=== PATIENT | female | born 1975 | race Caucasian/White ===

== ENCOUNTER 2016-04-23 17:13 | Emergency (ER) | payer BC, OTHER ==
[~2016-04-23] VITALS: Ht 162.6 cm; Wt 137.2 kg
[~2016-04-23 17:13] MED LIST: CITA20 PO; CYCL-36 PO; IBUP800T23 PO; NAPR220T95 PO; TRAM50 PO
[2016-04-23 17:17] VITALS: BP 132/86; PULSE 82; RESP 16; TEMP 98.2; O2SAT 96
[2016-04-23] MEDS ORDERED: CITA20TA4 PO (17:39)
[2016-04-23] MEDS ORDERED: FURO20TA PO (17:39)
[2016-04-23] MEDS ORDERED: VITA1000 PO (17:39)
[2016-04-23] MEDS ORDERED: VITA100021 SL (17:39)
[2016-04-23] MEDS ORDERED: OXYC15TA PO (17:39)
[2016-04-23] MEDS ORDERED: SODIUM CHLORIDE 0.9% FLUSH 5 ML FLUSH IVF PRN (18:00)
[2016-04-23 18:12] LABS: GLUCOSE,URINE NEG (NEG); KETONE, URINE NEG (NEG); NITRITE,URINE NEG (NEG)
[2016-04-23 18:14] LABS: AUTOMATED NEUTROPHIL # 4.4 TH/MM3 (1.8-7.7); BASOPHIL # 0.1 TH/MM3 (0-0.2); BASOPHIL % 2.2 % (0.0-2.0); EOSINOPHIL # 0.1 TH/MM3 (0-0.4); EOSINOPHIL % 1.8 % (0.0-4.0); HEMATOCRIT 34.1 % (35.0-46.0); LYMPH % 21.1 % (9.0-44.0); LYMPHOCYTE # 1.3 TH/MM3 (1.0-4.8); MEAN CELL VOLUME 81.3 FL (80.0-100.0); MEAN CORPUSCULAR HEMOGLOBIN 26.3 PG (27.0-34.0); MEAN CORPUSCULAR HGB CONC 32.3 % (32.0-36.0); MONO % 6.4 % (0.0-8.0); NEUT % 68.5 % (16.0-70.0); PLATELET COUNT 56 TH/MM3 (150-450); RED CELL DISTRIBUTION WIDTH 15.2 % (11.6-17.2); WHITE BLOOD COUNT 6.3 TH/MM3 (4.0-11.0)
[2016-04-23 18:21] LABS: CHLORIDE 97 MEQ/L (98-107); POTASSIUM 3.9 MEQ/L (3.5-5.1); SODIUM (NA) 137 MEQ/L (136-145)
[2016-04-23 18:22] LABS: BLOOD, URINE MOD (NEG)
[2016-04-23 18:23] LABS: URINE COLOR YELLOW (YELLW/STRAW)
[2016-04-23 18:24] LABS: COMMENT (UR) CULT NOT INDICATED; CULTURE IF INDICATED CULT NOT INDICATED; SQUAMOUS EPITHELIAL CELL URINE 0-5 /hpf (0-5); WBC, URINE 0-2 /hpf (0-5)
[2016-04-23 18:25] LABS: ANION GAP 7 MEQ/L (5-15); BICARBONATE 33.2 MEQ/L (21.0-32.0); BLOOD UREA NITROGEN 12 MG/DL (7-18)
[2016-04-23 18:26] LABS: APTT (PATIENT) 27.8 SEC (24.3-30.1); PROTHROMBIN TIME - PATIENT 10.7 SEC (9.8-11.6)
[2016-04-23 18:28] LABS: ALT (GPT) 105 U/L (10-53); AST (GOT) 108 U/L (15-37); GLOMERULAR FILTRATION RATE 61 ML/MIN (>89); HEMO FLAGS AUTO DIFF
[2016-04-23 18:29] LABS: TOTAL BILIRUBIN ADULT 0.5 MG/DL (0.2-1.0)
--- NOTE | 2016-04-23 18:29 | PD ---
HPI Chief Complaint: Edema Time Seen by Provider: 17:27 Travel History International Travel<30 days: No Contact w/Intl Traveler<30days: No Traveled to known affect area: No History of Present Illness HPI Patient is a 40-year-old female who presents to emergency room with complaints of swelling to her lower extremities with increased bruising for the past 2-3 weeks. Patient reports that she's had swelling to her lower extremities in the past, reports that she was started on Lasix and was instructed to take the medication every time her legs felt swollen. Reports that another physician to order stop doing that as she has lymphedema. Patient reports that at that time , she was admitted to the hospital for stage III kidney disease as well as for transaminitis. Patient reports that after she was hospitalized in discharge, she did follow up with a primary care doctor and had complete resolution of her symptoms. Patient reports that over the past 2-3 weeks, she has had increased swelling to her lower extremities with bruising all over body. Patient denies any recent travels or trips. Patient denies taking any anticoagulants. Patient denies history of PE or DVT. Patient denies shortness of breath or chest pain at this time. Patient does admit to taking a few doses of Lasix over the past few days without symptomatic relief of leg swelling. PFSH Past Medical History Anemia: Yes Anxiety: Yes Depression: Yes Cardiovascular Problems: Yes (PERIPHERAL EDEMA) Diminished Hearing: No Medical other: Yes (VITAMIN B12 & D DEFICIENCIES) Influenza Vaccination: No ?: Not Past Surgical History Cholecystectomy: Yes Tonsillectomy: Yes (& ADENOIDS) Social History Alcohol Use: No Tobacco Use: No Substance Use: No Allergies-Medications (Allergen,Severity, Reaction): Coded Allergies: No Known Allergies (Unverified , 04/23/16) Reported Meds & Prescriptions Reported Meds & Active Scripts Active Reported Vitamin D-1000 (Cholecalciferol) 1,000 Unit Tab 1,000 Units PO DAILY Vitamin B-12 (Cyanocobalamin) 1,000 Mcg Subl 1,000 Mcg SL DAILY Furosemide 20 Mg Tab 20 Mg PO DAILY Oxycodone (Oxycodone HCl) 15 Mg Tab 15 Mg PO Q6H PRN Citalopram (Citalopram Hydrobromide) 20 Mg Tab 20 Mg PO DAILY Review of Systems General / Constitutional: No: Fever Eyes: No: Visual changes HENT: No: Headaches Cardiovascular: No: Chest Pain or Discomfort Respiratory: No: Shortness of Breath Gastrointestinal: No: Abdominal Pain Genitourinary: No: Dysuria Musculoskeletal: Positive: Edema, No: Pain Skin: No Rash Neurologic: No: Weakness Psychiatric: No: Depression Endocrine: No: Polydipsia Hematologic/Lymphatic: No: Easy Bruising Physical Exam Narrative GENERAL: No acute distress, nontoxic SKIN: Warm and dry. HEAD: Atraumatic. Normocephalic. EYES:. No injection or drainage. ENT: No nasal bleeding or discharge. Mucous membranes pink and moist. NECK: Trachea midline. No JVD. CARDIOVASCULAR: Regular rate and rhythm. No murmur appreciated. RESPIRATORY: No accessory muscle use. Clear to auscultation. Breath sounds equal bilaterally. GASTROINTESTINAL: Abdomen soft, non-tender, nondistended. Hepatic and splenic margins not palpable. MUSCULOSKELETAL: No obvious deformities. No clubbing. No cyanosis. +2 pitting edema bilaterally NEUROLOGICAL: Awake and alert. No obvious cranial nerve deficits. Motor grossly within normal limits. Normal speech. PSYCHIATRIC: Appropriate mood and affect; insight and judgment normal. Data Data Last Documented VS Vital Signs Date Time Temp Pulse Resp B/P Pulse Ox O2 Delivery O2 Flow Rate FiO2 04/23/16 19:12 80 16 119/65 99 Room Air 04/23/16 17:17 98.2 Orders Complete Blood Count With Diff (04/23/16 17:51) Comprehensive Metabolic Panel (04/23/16 17:51) Lipase (04/23/16 17:51) Prothrombin Time / Inr (Pt) (04/23/16 17:51) Act Partial Throm Time (Ptt) (04/23/16 17:51) Urinalysis - C+S If Indicated (04/23/16 17:51) Iv Access Insert/Monitor (04/23/16 17:51) Sodium Chloride 0.9% Flush (Ns Flush) (04/23/16 18:00) Us Leg Venous Doppler Bilat (04/23/16 ) Labs Laboratory Tests Test 04/23/16 04/23/16 17:45 18:00 Urine Color YELLOW Urine Turbidity CLEAR Urine pH 6.0 Urine Specific [place] 1.021 Urine Protein TRACE mg/dL Urine Glucose (UA) NEG mg/dL Urine Ketones NEG mg/dL Urine Occult Blood MOD Urine Nitrite NEG Urine Bilirubin NEG Urine Leukocyte Esterase NEG Urine RBC 10-14 /hpf Urine WBC 0-2 /hpf Urine Squamous Epithelial 0-5 /hpf Cells Urine Bacteria NONE /hpf Microscopic Urinalysis Comment CULT NOT INDICATED White Blood Count 6.3 TH/MM3 Red Blood Count 4.20 MIL/MM3 Hemoglobin 11.0 GM/DL Hematocrit 34.1 % Mean Corpuscular Volume 81.3 FL Mean Corpuscular Hemoglobin 26.3 PG Mean Corpuscular Hemoglobin 32.3 % Concent Red Cell Distribution Width 15.2 % Platelet Count 56 TH/MM3 Mean Platelet Volume 12.2 FL Neutrophils (%) (Auto) 68.5 % Lymphocytes (%) (Auto) 21.1 % Monocytes (%) (Auto) 6.4 % Eosinophils (%) (Auto) 1.8 % Basophils (%) (Auto) 2.2 % Neutrophils # (Auto) 4.4 TH/MM3 Lymphocytes # (Auto) 1.3 TH/MM3 Monocytes # (Auto) 0.4 TH/MM3 Eosinophils # (Auto) 0.1 TH/MM3 Basophils # (Auto) 0.1 TH/MM3 CBC Comment AUTO DIFF Differential Comment AUTO DIFF CONFIRMED Platelet Estimate LOW Platelet Morphology Comment ENLARGED Prothrombin Time 10.7 SEC Prothromb Time International 1.0 RATIO Ratio Activated Partial 27.8 SEC Thromboplast Time Sodium Level 137 MEQ/L Potassium Level 3.9 MEQ/L Chloride Level 97 MEQ/L Carbon Dioxide Level 33.2 MEQ/L Anion Gap 7 MEQ/L Blood Urea Nitrogen 12 MG/DL Creatinine 1.00 MG/DL Estimat Glomerular Filtration 61 ML/MIN Rate Random Glucose 96 MG/DL Calcium Level 8.3 MG/DL Total Bilirubin 0.5 MG/DL Aspartate Amino Transf 108 U/L (AST/SGOT) Alanine Aminotransferase 105 U/L (ALT/SGPT) Alkaline Phosphatase 220 U/L Total Protein 7.2 GM/DL Albumin 3.0 GM/DL Lipase 68 U/L [facility] Medical Decision Making Medical Screen Exam Complete: Yes Emergency Medical Condition: Yes Interpretation(s) Vital Signs Date Time Temp Pulse Resp B/P Pulse Ox O2 Delivery O2 Flow Rate FiO2 04/23/16 17:17 98.2 82 16 132/86 96 Differential Diagnosis Clotting disorder, acute kidney injury, DVT, PE, CHF, electrolyte abnormality Narrative Course Patient is a 40-year-old female presents to emergency room with complaints of swelling to lower extremities bilaterally as increased bruising for her body for the past 2-3 weeks. Patient reports that she is currently not taking any anticoagulants at this time, denies any recent travels or any history of PE or DVT. Overall, patient nontoxic and evaluation. Patient with no chest pain or shortness of breath. Patient does have +2 pitting edema to b/l le's - will check us of legs to evaluate for possible dvt Check CBC, BMP, coags as patient reports increased bruising. Patient reports that she is currently not taking any anticoagulants at this time. Reviewed all labs and all studies with patient in detail. Patient instructed to follow-up with her primary care doctor as soon as possible. Patient understands need for repeat ultrasound of legs in 1 week if swelling persists. Diagnosis Primary Impression: Leg edema Qualified Code: R60.0 - Bilateral edema of lower extremity Additional Impressions: Thrombocytopenia Anemia Qualified Code: D64.9 - Anemia, unspecified type Transaminitis Hematuria Patient Instructions: General Instructions Additional Instructions: Please provide a copy of patient's labs and studies at discharge Please follow-up with your primary care doctor as soon as possible Please have your ultrasound repeated in 1 week if swelling persists. Please return to the emergency room if symptoms progress or worsen Please bring your discharge paperwork as well as all your studies to doctor's office for follow-up on all findings Return to ER immediately if you notice increased bleeding/bruising Disposition: 01 DISCHARGE HOME Condition: Josseline Rudolph DO Apr 23, 2016 18:29
[2016-04-23 18:31] LABS: ALKALINE PHOSPHATASE 220 U/L (45-117)
[2016-04-23 18:44] LABS: PLATELET ESTIMATE SMEAR LOW (NORMAL); PLATELET MORPHOLOGY ENLARGED (NORMAL); SCAN/DIFF AUTO DIFF CONFIRMED
--- NOTE | 2016-04-23 18:57 | RADHPO ---
EXAM DATE/TIME: 04/23/2016 18:19 [facility] COMPARISON: No previous studies available for comparison. INDICATIONS : Bilateral leg swelling. MEDICAL HISTORY : Anemia. SURGICAL HISTORY : Cholecystectomy.Tonsillectomy. ENCOUNTER: Initial ACUITY: 3 weeks PAIN SCORE: 4/10 LOCATION: Bilateral legs. TECHNIQUE: Venous ultrasound of the left and right leg was performed from the inguinal ligament to the proximal calf. Real-time, color Doppler and spectral tracing, compression and augmentation techniques were us ed. FINDINGS: RIGHT LEG: There is normal compressibility of the deep venous system from the inguinal region to the proximal ca lf. No echogenic clot is seen in the lumen of the common femoral, femoral, popliteal, and posterior tibial veins. There is a normal response of the venous system to proximal and distal augmentation an d respiration. LEFT LEG: There is normal compressibility of the deep venous system from the inguinal region to the proximal ca lf. No echogenic clot is seen in the lumen of the common femoral, femoral, popliteal, and posterior tibial veins. There is a normal response of the venous system to proximal and distal augmentation an d respiration. CONCLUSION: Normal examination. Jessica Guzmán MD on April 23, 2016 at 18:55 Board Certified Radiologist. This report was verified electronically.
[2016-04-23 19:12] VITALS: BP 119/65; PULSE 80; RESP 16; O2SAT 99
== END 2016-04-23 20:21 | disposition home or self-care (01) ==
LOC: PHED 17:13
DX: R60.0 Localized edema (principal); D64.9 Anemia, unspecified; D69.6 Thrombocytopenia, unspecified; R74.0 Nonspecific elevation of levels of transaminase and lactic acid dehydrogenase [LDH]; R31.9 Hematuria, unspecified; E53.8 Deficiency of other specified B group vitamins
CPT/HCPCS: 80053; 81001; 83690; 85025; 85610; 85730; 93970

== ENCOUNTER 2016-06-09 20:59 | Emergency (ER) | payer OTHER ==
[~2016-06-09] VITALS: Ht 162.6 cm; Wt 134.9 kg
[~2016-06-09 20:59] MED LIST changes: -CITA20 PO; +CITA20TA4 PO; -CYCL-36 PO; +FURO20TA PO; -IBUP800T23 PO; -NAPR220T95 PO; +OXYC15TA PO; -TRAM50 PO; +VITA1000 PO; +VITA100021 SL
[2016-06-09 21:46] VITALS: BP 131/86; PULSE 99; RESP 18; TEMP 98.6; O2SAT 100
== END 2016-06-10 00:20 | disposition left against medical advice (07) ==
LOC: PHED 20:59
DX: R10.32 Left lower quadrant pain (principal)
CPT/HCPCS: 99281

== ENCOUNTER 2017-01-20 16:21 | Observation (INO) | payer OTHER ==
[2017-01-20] VITALS (9 sets, daily range): BP systolic 129–157; BP diastolic 72–92; PULSE 86–116; RESP 16–20; TEMP 97.8; O2SAT 99–100
[~2017-01-20] VITALS: Ht 162.6 cm; Wt 129.5 kg
--- NOTE | 2017-01-20 16:41 | PD ---
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 [facility] Past Medical History Anemia: Yes Anxiety: Yes Depression: Yes Cardiovascular Problems: Yes (PERIPHERAL EDEMA) Diminished Hearing: No Past Surgical History Cholecystectomy: Yes Tonsillectomy: Yes (& ADENOIDS) Social History Alcohol Use: No Tobacco Use: No Substance Use: No Allergies-Medications (Allergen,Severity, Reaction): Coded Allergies: No Known Allergies (Unverified Allergy, Unknown, 01/20/17) Reported Meds & Prescriptions Reported Meds & Active Scripts Active Reported Gabapentin 300 Mg Cap 300 Mg PO TID Acyclovir 800 Mg Tab 800 Mg PO 5 TIMES A DAY Oxycodone (Oxycodone HCl) 5 Mg Cap 5 Mg PO Q6H PRN Celexa (Citalopram Hydrobromide) 20 Mg Tab 20 Mg PO DAILY Review of Systems Except as stated in HPI: all other systems reviewed are Neg General / Constitutional: No: Fever Eyes: No: Visual changes HENT: No: Headaches Cardiovascular: Positive: Chest Pain or Discomfort Respiratory: No: Shortness of Breath Gastrointestinal: No: Abdominal Pain Genitourinary: No: Dysuria Musculoskeletal: No: Pain Skin: No Rash Neurologic: No: Weakness Psychiatric: No: Depression Endocrine: No: Polydipsia Hematologic/Lymphatic: No: Easy Bruising Physical Exam Narrative GENERAL: SKIN: Warm and dry. HEAD: Atraumatic. Normocephalic. EYES: Pupils equal and round. No scleral icterus. No injection or drainage. ENT: No nasal bleeding or discharge. Mucous membranes pink and moist. NECK: Trachea midline. No JVD. CARDIOVASCULAR: Regular rate and rhythm. RESPIRATORY: No accessory muscle use. Clear to auscultation. Breath sounds equal bilaterally. GASTROINTESTINAL: Abdomen soft, non-tender, nondistended. MUSCULOSKELETAL: Extremities without clubbing, cyanosis, or edema. No obvious deformities. NEUROLOGICAL: Awake and alert. No obvious cranial nerve deficits. Motor grossly within normal limits. Five out of 5 muscle strength in the arms and legs. Normal speech. PSYCHIATRIC: Appropriate mood and affect; insight and judgment normal. Data Data Last Documented VS Vital Signs Date Time Temp Pulse Resp B/P (MAP) Pulse Ox O2 Delivery O2 Flow Rate FiO2 01/20/17 17:42 94 16 144/86 (105) 01/20/17 17:12 100 Room Air 01/20/17 16:21 97.8 Orders Orders Electrocardiogram (01/20/17 16:49) B-Type Natriuretic Peptide (01/20/17 16:49) Ckmb (Isoenzyme) Profile (01/20/17 16:49) Complete Blood Count With Diff (01/20/17 16:49) Comprehensive Metabolic Panel (01/20/17 16:49) Prothrombin Time / Inr (Pt) (01/20/17 16:49) Act Partial Throm Time (Ptt) (01/20/17 16:49) Troponin I (01/20/17 16:49) Chest, Single Ap (01/20/17 16:49) Ecg Monitoring (01/20/17 16:49) Bilateral Bp Monitoring (01/20/17 16:49) Iv Access Insert/Monitor (01/20/17 16:49) Oximetry (01/20/17 16:49) Oxygen Administration (01/20/17 16:49) Nitroglycerin 2% Oint (Nitroglycerin 2% (01/20/17 17:00) Sodium Chloride 0.9% Flush (Ns Flush) (01/20/17 17:00) Thyroid Stimulating Hormone (01/20/17 16:49) Metoprolol Tartrate Inj (Lopressor Inj) (01/20/17 17:00) Morphine Inj (Morphine Inj) (01/20/17 19:00) Place In Observation (01/20/17 18:35) Activity Bed Rest With Brp (01/20/17 18:35) Vital Signs (Adult) Q4H (01/20/17 18:35) Cardiac Rhythm .As Directed (01/20/17 18:35) Notify Dr: Other .PRN (01/20/17 18:35) Notify Dr. Parameters (01/20/17 18:35) Resp Oxygen Nasal Cannula (01/20/17 ) ^ Obtain (01/20/17 18:35) Sodium Chloride 0.9% Flush (Ns Flush) (01/20/17 18:45) Sodium Chloride 0.9% Flush (Ns Flush) (01/20/17 21:00) Acetaminophen (Tylenol) (01/20/17 18:45) Morphine Inj (Morphine Inj) (01/20/17 18:45) Nitroglycerin Sl (Nitrostat Sl) (01/20/17 18:45) Home Lighting Adviser / Telemetry SE.Q8H (01/20/17 18:35) ^ Other Nursing Orders (01/20/17 18:35) Admit Order (Ed Use Only) (01/20/17 18:37) Labs Laboratory Tests Test 01/20/17 16:55 White Blood Count 10.9 TH/MM3 Red Blood Count 4.91 MIL/MM3 Hemoglobin 12.6 GM/DL Hematocrit 39.4 % Mean Corpuscular Volume 80.1 FL Mean Corpuscular Hemoglobin 25.7 PG Mean Corpuscular Hemoglobin Concent 32.1 % Red Cell Distribution Width 16.2 % Platelet Count 196 TH/MM3 Mean Platelet Volume 11.2 FL Neutrophils (%) (Auto) 75.0 % Lymphocytes (%) (Auto) 14.3 % Monocytes (%) (Auto) 5.6 % Eosinophils (%) (Auto) 0.3 % Basophils (%) (Auto) 4.8 % Neutrophils # (Auto) 8.2 TH/MM3 Lymphocytes # (Auto) 1.6 TH/MM3 Monocytes # (Auto) 0.6 TH/MM3 Eosinophils # (Auto) 0.0 TH/MM3 Basophils # (Auto) 0.5 TH/MM3 CBC Comment DIFF FINAL Differential Comment Prothrombin Time 11.4 SEC Prothromb Time International Ratio 1.0 RATIO Activated Partial Thromboplast Time 24.5 SEC Blood Urea Nitrogen 8 MG/DL Creatinine 0.91 MG/DL Random Glucose 128 MG/DL Total Protein 7.8 GM/DL Albumin 3.3 GM/DL Calcium Level 8.8 MG/DL Alkaline Phosphatase 112 U/L Aspartate Amino Transf (AST/SGOT) 9 U/L Alanine Aminotransferase (ALT/SGPT) 15 U/L Total Bilirubin 0.3 MG/DL Sodium Level 138 MEQ/L Potassium Level 3.7 MEQ/L Chloride Level 103 MEQ/L Carbon Dioxide Level 27.7 MEQ/L Anion Gap 7 MEQ/L Estimat Glomerular Filtration Rate 68 ML/MIN Total Creatine Kinase 40 U/L Troponin I LESS THAN 0.02 NG/ML B-Type Natriuretic Peptide 5 PG/ML Thyroid Stimulating Hormone 3rd Gen 0.989 uIU/ML MDM Medical Decision Making Medical Screen Exam Complete: Yes Emergency Medical Condition: Yes Medical Record Reviewed: Yes Interpretation(s) sinus tachy 116, irbbb, no stemi pattern, nonspec stt changes noted. Differential Diagnosis stemi v nonstemi v pna v ptx Narrative Course cxr neg for pna/ptx, troponin neg, ekg did show some nonspec stt changes which along with patients complaint and description, i believe it prudent to addmit to [facility] for further evaluation and care Diagnosis Primary Impression: Chest pain Qualified Codes: R07.9 - Chest pain, unspecified Admitting Information Admitting Physician Requests: Observation Scripts Ondansetron Odt (Zofran Odt) 4 Mg Tab 4 MG SL Q8HR Y for Nausea/Vomiting, #30 TAB 0 Refills Prov: Payton Campos 01/21/17 Nitroglycerin SL (Nitrostat SL) 0.4 Mg Subl 0.4 MG SL Q5M Y for CHEST PAIN for 30 Days, #30 TAB Prov: Payton Campos 01/21/17 Hitesh Davis MD Jan 20, 2017 16:41
[2017-01-20] MEDS ORDERED: SODIUM CHLORIDE 0.9% FLUSH 10 ML FLUSH IVF PRN (17:00)
[2017-01-20] MEDS ORDERED: METOPROLOL TARTRATE 5 MG/5 ML VIAL IV PUSH ONE (17:00)
[2017-01-20] MEDS ORDERED: NITROGLYCERIN 2% OINT 1 GM PACKET TOP ONE (17:00)
[2017-01-20 17:07] LABS: AUTOMATED NEUTROPHIL # 8.2 TH/MM3 (1.8-7.7); BASOPHIL # 0.5 TH/MM3 (0-0.2); BASOPHIL % 4.8 % (0.0-2.0); EOSINOPHIL % 0.3 % (0.0-4.0); HEMATOCRIT 39.4 % (35.0-46.0); HEMOGLOBIN 12.6 GM/DL (11.6-15.3); LYMPH % 14.3 % (9.0-44.0); LYMPHOCYTE # 1.6 TH/MM3 (1.0-4.8); MEAN CELL VOLUME 80.1 FL (80.0-100.0); MEAN CORPUSCULAR HEMOGLOBIN 25.7 PG (27.0-34.0); MEAN CORPUSCULAR HGB CONC 32.1 % (32.0-36.0); MEAN PLATELET VOLUME 11.2 FL (7.0-11.0); MONO % 5.6 % (0.0-8.0); MONOCYTE # 0.6 TH/MM3 (0-0.9); PLATELET COUNT 196 TH/MM3 (150-450); RED BLOOD COUNT 4.91 MIL/MM3 (4.00-5.30); RED CELL DISTRIBUTION WIDTH 16.2 % (11.6-17.2); WHITE BLOOD COUNT 10.9 TH/MM3 (4.0-11.0)
[2017-01-20 17:15] LABS: CHLORIDE 103 MEQ/L (98-107); SODIUM (NA) 138 MEQ/L (136-145)
--- NOTE | 2017-01-20 17:15 | RADRPT ---
EXAM DATE/TIME: 01/20/2017 16:58 [facility] COMPARISON: No previous studies available for comparison. INDICATIONS : Chest pain and tightness. MEDICAL HISTORY : Anemia. SURGICAL HISTORY : Cholecystectomy. Tonsillectomy. ENCOUNTER: Initial ACUITY: 1 day PAIN SCORE: 6/10 LOCATION: Bilateral chest FINDINGS: A single view of the chest demonstrates the lungs to be symmetrically aerated without evidence of mas s, infiltrate or effusion. The lungs are hyperaerated bilaterally. The cardiomediastinal contours are unremarkable. Osseous structures are intact. CONCLUSION: No acute disease. Linden Bingham MD on January 20, 2017 at 17:13 Board Certified Radiologist. This report was verified electronically.
[2017-01-20 17:18] LABS: CALCIUM 8.8 MG/DL (8.5-10.1)
[2017-01-20 17:19] LABS: ALBUMIN 3.3 GM/DL (3.4-5.0); BICARBONATE 27.7 MEQ/L (21.0-32.0); BLOOD UREA NITROGEN 8 MG/DL (7-18); GLUCOSE,RANDOM 128 MG/DL (74-106)
[2017-01-20 17:20] LABS: PROTHROMBIN TIME - PATIENT 11.4 SEC (9.8-11.6)
[2017-01-20 17:21] LABS: ALT (GPT) 15 U/L (10-53)
[2017-01-20 17:22] LABS: AST (GOT) 9 U/L (15-37); CREATININE 0.91 MG/DL (0.50-1.00); GLOMERULAR FILTRATION RATE 68 ML/MIN (>89)
[2017-01-20 17:23] LABS: TOTAL BILIRUBIN ADULT 0.3 MG/DL (0.2-1.0); TOTAL PROTEIN 7.8 GM/DL (6.4-8.2)
[2017-01-20 17:24] LABS: ALKALINE PHOSPHATASE 112 U/L (45-117)
[2017-01-20 17:26] LABS: TROPONIN I LESS THAN 0.02 NG/ML (0.02-0.05)
[2017-01-20] MEDS ORDERED: GABA300C5 PO (17:54)
[2017-01-20] MEDS ORDERED: OXYC1CAP PO (17:54)
[2017-01-20] MEDS ORDERED: ACYC800T PO (17:54)
[2017-01-20] MEDS ORDERED: CELE20TA PO (17:54)
[2017-01-20] MEDS ORDERED: MORPHINE SULFATE 4 MG/ML INJ IV PUSH ONE (18:30)
[2017-01-20] MEDS ORDERED: SODIUM CHLORIDE 0.9% FLUSH 10 ML FLUSH IV FLUSH PRN (18:45)
[2017-01-20] MEDS ORDERED: MORPHINE SULFATE 4 MG/ML INJ IV PUSH PRN (18:45)
[2017-01-20] MEDS ORDERED: NITROGLYCERIN 0.4 MG SL 25 TABS/BTL SL PRN (18:45)
[2017-01-20] MEDS ORDERED: ACETAMINOPHEN 500 MG CPLT PO PRN (18:45)
[2017-01-20] MEDS ORDERED: MORPHINE SULFATE 2 MG/ML INJ IV ONE (19:00)
[2017-01-20 20:10] LABS: TROPONIN I LESS THAN 0.02 NG/ML (0.02-0.05)
[2017-01-20] MEDS ORDERED: ONDANSETRON HCL 4 MG/2 ML VIAL IV PUSH ONE (20:30)
[2017-01-20] MEDS ORDERED: MORPHINE SULFATE 2 MG/ML INJ IV PUSH ONE (20:30)
[2017-01-20] MEDS: SODIUM CHLORIDE 0.9% FLUSH 10 ML FLUSH IV FLUSH SCH (22:53)
[2017-01-20] MEDS: MORPHINE SULFATE 2 MG/ML INJ IV PRN (22:54)
[2017-01-20 23:38] LABS: TROPONIN I LESS THAN 0.02 NG/ML (0.02-0.05)
[2017-01-21] VITALS: BP 135/83; PULSE 68; RESP 16; TEMP 97.1; O2SAT 97
[2017-01-21] MEDS: MORPHINE SULFATE 2 MG/ML INJ IV PRN ×2 (03:04→07:35)
[2017-01-21 04:00] VITALS: BP 122/79; PULSE 81; RESP 20; TEMP 96.5; O2SAT 98
[2017-01-21] MEDS: SODIUM CHLORIDE 0.9% FLUSH 10 ML FLUSH IV FLUSH SCH (07:36)
[2017-01-21 08:00] VITALS: BP 128/79; PULSE 82; RESP 18; TEMP 97.4; O2SAT 100
[2017-01-21] MEDS ORDERED: CITALOPRAM HYDROBROMIDE 20 MG TAB PO SCH (09:30)
[2017-01-21] MEDS ORDERED: ONDANSETRON HCL 4 MG/2 ML VIAL IV PUSH PRN (09:30)
--- NOTE | 2017-01-21 09:42 | HHI.HP ---
[facility] Service [facility] Primary Care Physician Saqib Rasmussen, DO Admission Diagnosis CP R/O [place] Diagnoses: (1) Chest pain Diagnosis: Principal Chief Complaint: Chest pain Travel History International Travel<30 Days: No Contact w/Intl Traveler <30 Da: No Traveled to Known Affected Are: No History of Present Illness Ms. Tan is a 41-year-old female patient with a known medical history of anxiety, depression and chronic back pain who presented to the ED yesterday with complaints of chest pain. Patient states she noticed the symptoms begin on Tuesday, 4 days ago. 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 While at work she noticed her heart racing and checked her BP which was elevated. These symptoms have happened on and off roughly 2-3 times per day for the past 4 days. Patient admits to associated shortness of breath, diaphoresis and feeling faint. Denies any associated nausea or vomiting. Patient also admits to chest tightness with associated burning that started yesterday, occurs in her midsternal chest, denies any radiation to arm, neck or jaw. At its worse the pain is a 7/10 on pain scale, states that activity would make it worse. The chest tightness lasted roughly 2 hours until patient presented to the ED and was given IV Morphine, when she noticed the pain subside. Denies ever having this chest discomfort in the past. Patient states the pain could be related to recently assisting one of her patients and might have "pulled something". Denies any recent illness including fever, chills , headache, cough, shortness of breath, abdominal pain, nausea, vomiting, diarrhea or dysuria. Does states she underwent a cardiac stress test two years ago which was reportedly negative. Does not follow with a training officer. PCP is Dr. Rasmussen. Review of Systems Constitutional: DENIES: Fever, Chills Endocrine: DENIES: Polydipsia Respiratory: COMPLAINS OF: Shortness of breath, DENIES: Cough, Wheezing Cardiovascular: COMPLAINS OF: Chest pain, Palpitations Gastrointestinal: DENIES: Abdominal pain, Constipation, Diarrhea, Nausea, Vomiting Genitourinary: DENIES: Dysuria Musculoskeletal: DENIES: Joint pain Psychiatric: COMPLAINS OF: Anxiety Except as stated in HPI: all other systems reviewed are Neg Past Family Social History Past Medical History Anxiety Depression Chronic back pain Peripheral edema from prolonged standing. Past Surgical History Cholecystectomy Tonsillectomy Reported Medications Reported Meds & Active Scripts Active Reported Gabapentin 300 Mg Cap 300 Mg PO TID Acyclovir 800 Mg Tab 800 Mg PO 5 TIMES A DAY Oxycodone (Oxycodone HCl) 5 Mg Cap 5 Mg PO Q6H PRN Celexa (Citalopram Hydrobromide) 20 Mg Tab 20 Mg PO DAILY Allergies: Coded Allergies: No Known Allergies (Unverified Allergy, Unknown, 01/20/17) Active Ordered Medications Current Medications Medications (Trade) Dose Ordered Sig/Nicolette Route Start Time Stop Time Status Last Admin (NS Flush) 2 ml UNSCH PRN IV FLUSH 01/20/17 18:45 (NS Flush) 2 ml BID IV FLUSH 01/20/17 21:00 01/21/17 07:36 (Tylenol) 500 mg Q4H PRN PO 01/20/17 18:45 (Nitrostat Sl) 0.4 mg Q5M PRN SL 01/20/17 18:45 (Morphine Inj) 2 mg Q4H PRN IV 01/20/17 19:00 01/21/17 07:35 (CeleXA) 20 mg DAILY PO 01/21/17 09:30 (Neurontin) 300 mg TID PO 01/21/17 13:00 (Zofran Inj) 4 mg Q6HR PRN IV PUSH 01/21/17 09:30 Family History Both mother and father have a significant medical history of cardiovascular disease. Social History Denies any past or current tobacco use. Denies any alcohol use. Denies any illicit drug use. Physical Exam Vital Signs Vital Signs Date Time Temp Pulse Resp B/P (MAP) Pulse Ox O2 Delivery O2 Flow Rate FiO2 01/21/17 08:00 97.4 82 18 128/79 (95) 100 01/21/17 04:00 96.5 81 20 122/79 (93) 98 01/21/17 00:00 97.1 68 16 135/83 (100) 97 01/20/17 21:52 100 21 01/20/17 20:00 97.8 92 16 129/77 (94) 99 01/20/17 19:06 88 16 156/72 (100) 99 Room Air 01/20/17 19:06 16 99 Room Air 01/20/17 18:46 89 20 148/76 (100) 100 Room Air 01/20/17 17:42 94 16 144/86 (105) 01/20/17 17:30 86 16 138/82 (100) 01/20/17 17:12 116 20 151/92 (111) 100 Room Air 157/84 (108) 01/20/17 17:00 100 Room Air 01/20/17 17:00 100 Room Air 01/20/17 16:21 97.8 115 20 141/88 (105) 100 01/20/17 16:21 115 100 Room Air Physical Exam GENERAL: This is a well-nourished, well-developed female patient, in no apparent distress. SKIN: No rashes, ecchymoses or lesions. Warm and dry. HEENT: Atraumatic. Normocephalic. Pupils equal round and reactive. Extraocular motions intact. No scleral icterus. No injection or drainage. Nose without bleeding, purulent drainage or septal hematoma. Airway patent. NECK: Trachea midline. No JVD. Supple. CARDIOVASCULAR: Regular rate and rhythm without murmurs, gallops, or rubs. Nonreproducible chest pain to palpation. RESPIRATORY: Clear to auscultation. Breath sounds equal bilaterally. No wheezes , rales, or rhonchi. GASTROINTESTINAL: Abdomen soft, obese, non-tender, nondistended. No guarding. MUSCULOSKELETAL: Extremities without clubbing, cyanosis, or edema. No joint tenderness, effusion, or edema noted. NEUROLOGICAL: Awake and alert. Cranial nerves II through XII intact. Motor and sensory grossly within normal limits. Five out of 5 muscle strength in all muscle groups. Normal speech. Laboratory Laboratory Tests Test 01/20/17 16:55 01/20/17 19:36 01/20/17 23:00 White Blood Count 10.9 Red Blood Count 4.91 Hemoglobin 12.6 Hematocrit 39.4 Mean Corpuscular Volume 80.1 Mean Corpuscular Hemoglobin 25.7 Mean Corpuscular Hemoglobin Concent 32.1 Red Cell Distribution Width 16.2 Platelet Count 196 Mean Platelet Volume 11.2 Neutrophils (%) (Auto) 75.0 Lymphocytes (%) (Auto) 14.3 Monocytes (%) (Auto) 5.6 Eosinophils (%) (Auto) 0.3 Basophils (%) (Auto) 4.8 Neutrophils # (Auto) 8.2 Lymphocytes # (Auto) 1.6 Monocytes # (Auto) 0.6 Eosinophils # (Auto) 0.0 Basophils # (Auto) 0.5 CBC Comment DIFF FINAL Differential Comment Prothrombin Time 11.4 Prothromb Time International Ratio 1.0 Activated Partial Thromboplast Time 24.5 Blood Urea Nitrogen 8 Creatinine 0.91 Random Glucose 128 Total Protein 7.8 Albumin 3.3 Calcium Level 8.8 Alkaline Phosphatase 112 Aspartate Amino Transf (AST/SGOT) 9 Alanine Aminotransferase (ALT/SGPT) 15 Total Bilirubin 0.3 Sodium Level 138 Potassium Level 3.7 Chloride Level 103 Carbon Dioxide Level 27.7 Anion Gap 7 Estimat Glomerular Filtration Rate 68 Total Creatine Kinase 40 40 57 Troponin I LESS THAN 0.02 LESS THAN 0.02 LESS THAN 0.02 B-Type Natriuretic Peptide 5 Thyroid Stimulating Hormone 3rd Gen 0.989 Result Diagram: 01/20/175 01/20/17 165 Imaging Last Impressions Chest X-Ray 01/20/171648 Signed Impressions: Service Date/Time: January 16:58 - CONCLUSION: No acute disease. MD Gladis Deleon VTE Risk Assessment Gladis VTE Risk Assessment: No/Low Risk (score <= 1) Caprini Risk Assessment Model Point Value = 1 Point Value = 2 Point Value = 3 Point Value = 5 Age 41-60 Minor surgery BMI > 25 kg/m2 Swollen legs Varicose veins or History of unexplained or recurrent spontaneous Oral contraceptives or hormone replacement Sepsis (< 1 month) Serious lung disease, including pneumonia (< 1 month) Abnormal pulmonary function Acute myocardial infarction Congestive heart failure (< 1 month) History of inflammatory bowel disease Medical patient at bed rest Age 61-74 Arthroscopic surgery Major open surgery (> 45 min) Laparoscopic surgery (> 45 min) Malignancy Confined to bed (> 72 hours) Immobilizing plaster cast Central venous access Age >= 75 History of VTE Family history of VTE Factor V Leiden Prothrombin [id number] Lupus anticoagulant Anticardiolipin antibodies Elevated serum homocysteine Heparin-induced thrombocytopenia Other congenital or acquired thrombophilia Stroke (< 1 month) Elective arthroplasty Hip, pelvis, or leg fracture Acute spinal cord injury (< 1 month) Prophylaxis Regimen Total Risk Factor Score Risk Level Prophylaxis Regimen 0-1 Low Early ambulation 2 Moderate Order ONE of the following: *Sequential Compression Device (SCD) *Heparin 5000 units SQ BID 3-4 Higher Order ONE of the following medications: *Heparin 5000 units SQ TID *Enoxaparin/Lovenox 40 mg SQ daily (WT < 150 kg, CrCl > 30 mL/min) *Enoxaparin/Lovenox 30 mg SQ daily (WT < 150 kg, CrCl > 10-29 mL/min) *Enoxaparin/Lovenox 30 mg SQ BID (WT < 150 kg, CrCl > 30 mL/min) AND/OR *Sequential Compression Device (SCD) 5 or more Highest Order ONE of the following medications: *Heparin 5000 units SQ TID (Preferred with Epidurals) *Enoxaparin/Lovenox 40 mg SQ daily (WT < 150 kg, CrCl > 30 mL/min) *Enoxaparin/Lovenox 30 mg SQ daily (WT < 150 kg, CrCl > 10-29 mL/min) *Enoxaparin/Lovenox 30 mg SQ BID (WT < 150 kg, CrCl > 30 mL/min) AND *Sequential Compression Device (SCD) Assessment and Plan Assessment and Plan Ms. Tan is a 41-year-old female patient with a known medical history of anxiety, depression and chronic back pain who presented to the ED yesterday with complaints of chest pain. Patient states she noticed the symptoms begin on Tuesday, 4 days ago. 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 While at work she noticed her heart racing and checked her BP which was elevated. These symptoms have happened on and off roughly 2-3 times per day for the past 4 days. Patient admits to associated shortness of breath, diaphoresis and feeling faint. Denies any associated nausea or vomiting. Patient also admits to chest tightness with associated burning that started yesterday, occurs in her midsternal chest, denies any radiation to arm, neck or jaw. Chest pain - Patient has been admitted to the chest pain center. Serial EKGs and serial troponins have been ordered for ruling out purposes. Troponins are flat. EKG reviewed showing NSR no arrhythmias, no ST changes to indicate ischemia. A nuclear stress test has been ordered to rule out any ischemia, will follow results, further treatment and plan will depend on nuclear imaging results. Supportive care. Morphine IV available PRN per pain scale. Toradol IV x 1 ordered. CBC reviewed and essentially unremarkable. BMP reviewed and unremarkable. CXR reviewed showing no acute disease. Nausea: Zofran available PRN. Depression, chronic: Continue home Celexa. Patient is stable at this time and agreeable to the plan. Payton Campos Jan 21, 2017 09:42
[2017-01-21] MEDS ORDERED: REGADENOSON INJ 0.4 MG/5 ML SYR IV ONE (10:46)
[2017-01-21] MEDS ORDERED: KETOROLAC TROMETHAMINE 30 MG/ML (IVP) VIAL IV PUSH ONE (11:00)
[2017-01-21 12:00] VITALS: BP 137/68; PULSE 87; RESP 18; TEMP 97.7; O2SAT 100
--- NOTE | 2017-01-21 12:07 | RADRPT ---
EXAM DATE/TIME: 01/21/2017 10:09 [facility] COMPARISON: No previous studies available for comparison. INDICATIONS : Chest pain. Angina. DOSE: 35 mCi Tc99m Myoview at stress. 11 mCi Tc99m Myoview at rest. 0.4 mg Lexiscan STRESS SYMPTOMS: Chest tightness, heart racing. EJECTION FRACTION: > 70% MEDICAL HISTORY : None SURGICAL HISTORY : Cholecystectomy. Tonsillectomy. Tubal ligation. ENCOUNTER: Initial ACUITY: 1 day PAIN SCALE: 4/10 LOCATION: Bilateral chest TECHNIQUE: The patient underwent pharmacologic stress with infusion of prescribed dose. Continuous ECG tracing was monitored during stress. Gated SPECT imaging was performed after stress and conventional SPECT i maging was performed at rest. The examination was performed on a SPECT/CT scanner, both attenuation and non-corrected datasets were reviewed. FINDINGS: DISTRIBUTION: The maximum perfused segment at stress is in the septal wall. PERFUSION STUDY: The pattern of perfusion at stress is within normal limits. GATED STUDY: There is intact wall motion and thickening without hypokinetic or dyskinetic segments. CONCLUSION: 1. Normal wall motion the calculated ejection fraction. 2. No fixed or reversible wall defects to suggest ischemia or infarction. RISK CATEGORY: Low (<1% Annual Mortality Rate) Sean Moulton MD on January 21, 2017 at 12:01 Board Certified Radiologist. This report was verified electronically.
--- NOTE | 2017-01-21 12:11 | EKG ---
Date Performed: 01/20/2017 Time Performed: 16:38:32 PTAGE: 41 years EKG: SINUS TACHYCARDIA LOW QRS VOLTAGE IN PRECORDIAL LEADS POSSIBLE RIGHT VENTRICULAR CONDUCTION DELAY NONSPECIFIC ST & T-WAVE ABNORMALITY ABNORMAL RHYTHM ECG NO PREVIOUS TRACING DOCTOR: Rasheed Diehl Interpretating Date/Time 01/21/2017 12:08:27
--- NOTE | 2017-01-21 12:12 | EKG ---
Date Performed: 01/20/2017 Time Performed: 20:02:10 PTAGE: 41 years EKG: Sinus rhythm LOW QRS VOLTAGE IN PRECORDIAL LEADS POSSIBLE RIGHT VENTRICULAR CONDUCTION DELAY BORDERLINE ECG Aris red to PREVIOUS TRACING sinus rate has slowed PREVIOUS TRACIN01/20/2017 16.38 DOCTOR: Rasheed Diehl Interpretating Date/Time 01/21/2017 12:08:41
--- NOTE | 2017-01-21 12:13 | EKG ---
Date Performed: 01/20/2017 Time Performed: 22:50:01 PTAGE: 41 years EKG: SINUS TACHYCARDIA POSSIBLE RIGHT VENTRICULAR CONDUCTION DELAY NONSPECIFIC T-WAVE ABNORMALIT Y ABNORMAL RHYTHM ECG Compared to PREVIOUS TRACING sinus rate has increased PREVIOUS TRACIN01/20/2017 20.02 DOCTOR: Rasheed Diehl Interpretating Date/Time 01/21/2017 12:08:54
[2017-01-21] MEDS ORDERED: GABAPENTIN 300 MG CAP PO SCH (13:00)
[2017-01-21] MEDS ORDERED: NITR0.4S SL (13:20)
--- NOTE | 2017-01-21 13:20 | HHI.DCPOC ---
Discharge Care Plan Diagnosis: (1) Chest pain Your Health Problems Are: Chest Pain Goals to Promote Your Health * To prevent worsening of your condition and complications * To maintain your health at the optimal level Directions to Meet Your Goals Take your medications as prescribed Follow your dietary instruction Follow activity as directed Keep your appointments as scheduled Take your immunizations and boosters as scheduled If your symptoms worsen call your PCP, if no PCP go to Urgent Care Center or Emergency Room Smoking is Dangerous to Your Health. Avoid second hand smoke Call the 24-hour hour crisis hotline for domestic abuse at Payton Campos Jan 21, 2017 13:20
--- NOTE | 2017-01-21 13:20 | HHI.DCPOC ---
Discharge Care Plan Diagnosis: (1) Chest pain Your Health Problems Are: Chest Pain Goals to Promote Your Health * To prevent worsening of your condition and complications * To maintain your health at the optimal level Directions to Meet Your Goals Take your medications as prescribed Follow your dietary instruction Follow activity as directed Keep your appointments as scheduled Take your immunizations and boosters as scheduled If your symptoms worsen call your PCP, if no PCP go to Urgent Care Center or Emergency Room Smoking is Dangerous to Your Health. Avoid second hand smoke Call the 24-hour hour crisis hotline for domestic abuse at Payton Campos Jan 21, 2017 13:20
--- NOTE | 2017-01-21 13:20 | HHI.DCPOC ---
Discharge Care Plan Diagnosis: (1) Chest pain Your Health Problems Are: Chest Pain Goals to Promote Your Health * To prevent worsening of your condition and complications * To maintain your health at the optimal level Directions to Meet Your Goals Take your medications as prescribed Follow your dietary instruction Follow activity as directed Keep your appointments as scheduled Take your immunizations and boosters as scheduled If your symptoms worsen call your PCP, if no PCP go to Urgent Care Center or Emergency Room Smoking is Dangerous to Your Health. Avoid second hand smoke Call the 24-hour hour crisis hotline for domestic abuse at Payton Campos Jan 21, 2017 13:20
[2017-01-21] MEDS ORDERED: ZOFR4TAB3 SL (13:29)
--- NOTE | 2017-01-24 08:56 | TR ---
Date Performed: 01/21/2017 Time Performed: 10:40:31 DOCTOR: Blair Bourgeois DRUG LIST: CLINICAL HISTORY: CHEST PAIN REASON FOR TEST: Chest pain REASON FOR ENDING: OBSERVATION: CONCLUSION: Lexiscan stress test was performed under standard four minute protocol. Radionuclid e was injected one minute prior to ending the test. No electrocardiographic abormalities were present to suggest ischemia. Nuclear imaging and interpretation are pending. COMMENTS:
== END 2017-01-21 13:52 | disposition home or self-care (01) ==
LOC: PHED 16:21 → PHEDA 18:40 → PH3A 20:45
PROVIDERS: ADMIT Family Medicine; ATTEND Family Medicine
DX: R07.89 Other chest pain (principal); R55 Syncope and collapse; R94.31 Abnormal electrocardiogram [ECG] [EKG]; F32.9 Major depressive disorder, single episode, unspecified; Z79.899 Other long term (current) drug therapy
CPT/HCPCS: 71010; 78452; 80053; 82550; 83880; 84443; 84484; 85025; 85610; 85730; 93005; 93017; 96374; 96375; 96376; 99285; A9502; G0378; J1885; J2270; J2405; J2785

== ENCOUNTER 2017-05-23 16:03 | Emergency (ER) | payer OTHER ==
[~2017-05-23] VITALS: Ht 162.6 cm; Wt 131.0 kg
[~2017-05-23 16:03] MED LIST changes: +ACYC800T PO; +CELE20TA PO; -CITA20TA4 PO; -FURO20TA PO; +GABA300C5 PO; +NITR0.4S SL; -OXYC15TA PO; +OXYC1CAP PO; -VITA1000 PO; -VITA100021 SL; +ZOFR4TAB3 SL
[2017-05-23 16:25] VITALS: BP 155/89; PULSE 75; RESP 16; TEMP 98.8; O2SAT 100
[2017-05-23] MEDS ORDERED: OMEP20TA93 PO (17:35)
[2017-05-23] MEDS ORDERED: ALPR.5 PO (17:35)
--- NOTE | 2017-05-23 19:08 | RADRPT ---
EXAM DATE/TIME: 05/23/2017 18:27 [facility] COMPARISON: No previous studies available for comparison. INDICATIONS : Left leg pain. MEDICAL HISTORY : Left leg pain. SURGICAL HISTORY : Cholecystectomy. ENCOUNTER: Initial ACUITY: 3 weeks PAIN SCORE: 7/10 LOCATION: Left leg. TECHNIQUE: Venous ultrasound of the leg was performed from the inguinal ligament to the proximal calf. Real-brunilda e, color Doppler and spectral tracing, compression and augmentation techniques were used. FINDINGS: There is normal compressibility of the deep venous system from the inguinal region to the proximal ca lf. No echogenic clot is seen in the lumen of the common femoral, femoral, popliteal, and posterior tibial veins. There is a normal response of the venous system to proximal and distal augmentation an d respiration. CONCLUSION: Negative for deep venous thrombosis. Aaron Riley MD on May 23, 2017 at 19:06 Board Certified Radiologist. This report was verified electronically.
[2017-05-23] MEDS ORDERED: FURO1TAB62 PO (19:42)
[2017-05-23] MEDS ORDERED: DICL75TA PO (19:42)
[2017-05-23] MEDS ORDERED: POTA8CAP PO (19:42)
--- NOTE | 2017-05-23 19:46 | PD ---
HPI Chief Complaint: Musculoskeletal Complaint Time Seen by Provider: 17:41 Travel History International Travel<30 days: No Contact w/Intl Traveler<30days: No Traveled to known affect area: No History of Present Illness HPI 41-year-old female that presents to the ED for evaluation of left leg swelling. Patient has had left leg swelling for about a couple of weeks. Per patient she recently flew and she noticed that she had bruises on her left flank. She' s never had this before. She denies any injury. She does state that she had a blood clot when she was on her arms and her PCP evaluate her today and recommends that she comes here for an ultrasound. She comes here with paperwork that shows that she needs an ultrasound. No other medical issues. Per patient the pain is 6 out of 10. She denies any injury or other medical issues. No bleeding disorders. No blood thinner use. PFSH Past Medical History Anemia: Yes Anxiety: Yes Depression: Yes Cancer: No Cardiovascular Problems: Yes (PERIPHERAL EDEMA) Diminished Hearing: No Endocrine: No Genitourinary: No Immune Disorder: No Musculoskeletal: Yes (back pain) Neurologic: Yes (NEUROPATHY) Psychiatric: No Reproductive: No Respiratory: No Immunizations Current: No Influenza Vaccination: No ?: Not Tubal Ligation: Yes Past Surgical History Cholecystectomy: Yes Gynecologic Surgery: Yes (tubal ligation) Tonsillectomy: Yes (& ADENOIDS) Social History Alcohol Use: No Tobacco Use: No Substance Use: No Allergies-Medications (Allergen,Severity, Reaction): Coded Allergies: No Known Allergies (Unverified Allergy, Unknown, 05/23/17) Reported Meds & Prescriptions Reported Meds & Active Scripts Active Reported Xanax (Alprazolam) 0.5 Mg Tab 0.5 Mg PO Q8H PRN Omeprazole 20 Mg Tab 20 Mg PO DAILY Gabapentin 300 Mg Cap 300 Mg PO TID Acyclovir 800 Mg Tab 800 Mg PO 5 TIMES A DAY Oxycodone (Oxycodone HCl) 5 Mg Cap 5 Mg PO Q6H PRN Celexa (Citalopram Hydrobromide) 20 Mg Tab 20 Mg PO DAILY Review of Systems Except as stated in HPI: all other systems reviewed are Neg Physical Exam Narrative GENERAL: SKIN: Warm and dry. HEAD: Atraumatic. Normocephalic. EYES: Pupils equal and round. No scleral icterus. No injection or drainage. ENT: No nasal bleeding or discharge. Mucous membranes pink and moist. NECK: Trachea midline. No JVD. CARDIOVASCULAR: Regular rate and rhythm. RESPIRATORY: No accessory muscle use. Clear to auscultation. Breath sounds equal bilaterally. GASTROINTESTINAL: Abdomen soft, non-tender, nondistended. Hepatic and splenic margins not palpable. MUSCULOSKELETAL: Extremities without clubbing, cyanosis, or edema. No obvious deformities. Full range of motion of the upper and lower extremities bilaterally. 2+ pulses bilaterally. Patient does have soft tissues swelling on the left leg compared to the right. Legs do have some pitting edema however. Patient does have bruising on the superior aspect of the leg. No obvious sign of deformity otherwise. No calf Pain. NEUROLOGICAL: Awake and alert. No obvious cranial nerve deficits. Motor grossly within normal limits. Five out of 5 muscle strength in the arms and legs. Normal speech. PSYCHIATRIC: Appropriate mood and affect; insight and judgment normal. Data Data Last Documented VS Vital Signs Date Time Temp Pulse Resp B/P (MAP) Pulse Ox O2 Delivery O2 Flow Rate FiO2 05/23/17 16:25 98.8 75 16 155/89 (111) 100 Orders Orders Us Leg Venous Doppler (05/23/17 17:48) Ed Discharge Order (05/23/17 19:41) MDM Medical Decision Making Medical Screen Exam Complete: Yes Emergency Medical Condition: Yes Medical Record Reviewed: Yes Interpretation(s) Last Impressions Lower Extremity Ultrasound 05/23/17 4152 Signed Impressions: Service Date/Time: Tuesday, May 23, 2017 18:27 - CONCLUSION: Negative for deep venous thrombosis. Aaron Riley MD Differential Diagnosis DVT versus muscle spasm versus bruise versus contusion Narrative Course 42-year-old female that presents to the ED for evaluation of right leg swelling. Patient was properly examined and was found to have signs and symptoms consistent appears to be swelling. Unclear etiology at this time. Ultrasound was ordered. Ultrasound was negative for acute disease. Patient was reassured. Possible pitting edema. This time I will recommend anti- inflammatories. She was given a short prescription of [address] results for the swelling. Potassium was given as well. Told to follow with PCP. See ED worsening symptoms. Diagnosis Primary Impression: Leg edema Patient Instructions: General Instructions Additional Instructions: Take medications as prescribed. Follow with PCP. See ED worsening symptoms. Med/Other Pt SpecificInfo: Prescription(s) given Scripts Potassium Chloride ER (Potassium Chloride ER) 8 Meq Cap 8 MEQ PO DAILY for Electrolyte Replacement for 5 Days, #5 CAP 0 Refills Prov: Hitesh Davis MD 05/23/17 Furosemide (Lasix) 20 Mg Tab 20 MG PO DAILY for 5 Days, #5 TAB 0 Refills Prov: Hitesh Davis MD 05/23/[address] (Diclofenac Sodium DR) 75 Mg Tabdr 75 MG PO BID Y for PAIN SCALE 1 TO 10, #20 TAB 0 Refills Prov: Hitesh Davis MD 05/23/17 Disposition: 01 DISCHARGE HOME Condition: Stable Sotero Liz May 23, 2017 19:46
== END 2017-05-23 19:52 | disposition home or self-care (01) ==
LOC: PHEFT 16:03
DX: R60.0 Localized edema (principal); D64.9 Anemia, unspecified; F41.9 Anxiety disorder, unspecified; F32.9 Major depressive disorder, single episode, unspecified; G62.9 Polyneuropathy, unspecified; Z79.899 Other long term (current) drug therapy
CPT/HCPCS: 93971; 99284

== ENCOUNTER 2017-07-08 18:35 | Emergency (ER) | payer OTHER ==
[~2017-07-08] VITALS: Ht 162.6 cm; Wt 132.4 kg
[~2017-07-08 18:35] MED LIST changes: +ALPR.5 PO; +DICL75TA PO; +FURO1TAB62 PO; -NITR0.4S SL; +OMEP20TA93 PO; +POTA8CAP PO; -ZOFR4TAB3 SL
[2017-07-08 18:42] VITALS: BP 126/81; PULSE 102; RESP 16; TEMP 100; O2SAT 95
[2017-07-08] MEDS ORDERED: IBUP1TAB7 PO (19:25)
--- NOTE | 2017-07-08 20:05 | PD ---
HPI Chief Complaint: Injury Time Seen by Provider: 19:22 Travel History International Travel<30 days: No Contact w/Intl Traveler<30days: No Traveled to known affect area: No History of Present Illness HPI This is a 41-year-old female with right knee pain 3 days. She reports she fell onto a flexed knee 3 days ago. She was evaluated at a local urgent care clinic and had a negative x-ray. She reports the pain has continued and she now has bruising to the anterior aspect of the knee prompting her visit. She denies altered sensation or weakness of the knee. She does report some mild tingling to the anterior aspect. Pain is reproduced by flexion and weightbearing. Slightly relieved with rest and elevation. Symptom severity is moderate. She denies any other injuries from the fall. She is not anticoagulated. PFSH Past Medical History Hx Anticoagulant Therapy: No Anemia: Yes Anxiety: Yes Depression: Yes Cancer: No Cardiovascular Problems: Yes (PERIPHERAL EDEMA) Diminished Hearing: No Endocrine: No Genitourinary: No Immune Disorder: No Musculoskeletal: Yes (back pain) Neurologic: Yes (NEUROPATHY) Psychiatric: No Reproductive: No Respiratory: No Immunizations Current: Yes Tetanus Vaccination: > 5 Years Influenza Vaccination: Yes ?: Not Tubal Ligation: Yes Past Surgical History Cholecystectomy: Yes Gynecologic Surgery: Yes (tubal ligation) Tonsillectomy: Yes (& ADENOIDS) Other Surgery: Yes Social History Alcohol Use: No Tobacco Use: No Substance Use: No Allergies-Medications (Allergen,Severity, Reaction): Coded Allergies: No Known Allergies (Unverified Allergy, Unknown, 07/08/17) Reported Meds & Prescriptions Reported Meds & Active Scripts Active [place] (Hydrocodone-Acetaminophen) 5 Mg-325 Mg Tab 1 Tab PO Q6H PRN Reported Ibuprofen 800 Mg Tab 800 Mg PO Q6HR PRN Gabapentin 300 Mg Cap 300 Mg PO TID Acyclovir 800 Mg Tab 800 Mg PO 5 TIMES A DAY Oxycodone (Oxycodone HCl) 5 Mg Cap 5 Mg PO Q6H PRN Celexa (Citalopram Hydrobromide) 20 Mg Tab 20 Mg PO DAILY Review of Systems Except as stated in HPI: all other systems reviewed are Neg General / Constitutional: No: Fever Eyes: No: Visual changes HENT: No: Headaches Cardiovascular: No: Chest Pain or Discomfort Respiratory: No: Shortness of Breath Gastrointestinal: No: Abdominal Pain Genitourinary: No: Dysuria Physical Exam Narrative GENERAL: Alert and well-appearing 41-year-old female SKIN: Warm and dry. HEAD: Normocephalic. EYES: No scleral icterus. No injection or drainage. NECK: Supple CARDIOVASCULAR: Regular rate and rhythm RESPIRATORY: Breath sounds equal bilaterally. No accessory muscle use. GASTROINTESTINAL: Abdomen soft, non-tender, nondistended. MUSCULOSKELETAL: No cyanosis. Right lower extremity: Ecchymosis noted to the anterior aspect of the knee.+TTP over patella. Limited flexion due to pain. Palpable distal pulses. Normal range of motion of the ankle and toes. Normal sensation with sharp/dull distinction. Brisk cap refill BACK: No CVA tenderness. Data Data Last Documented VS Vital Signs Date Time Temp Pulse Resp B/P (MAP) Pulse Ox O2 Delivery O2 Flow Rate FiO2 07/08/17 18:42 100.0 102 16 126/81 (96) 95 Orders Orders Knee, Complete (4vws) (07/08/17 ) Acetamin-Hydrocod 325-5 Mg ([place] 5-325 (07/08/17 20:30) Andrew Bandage (07/08/17 20:24) Crutches (07/08/17 20:24) Ed Discharge Order (07/08/17 20:28) MDM Medical Decision Making Medical Screen Exam Complete: Yes Emergency Medical Condition: Yes Differential Diagnosis Patella fracture, contusion, knee sprain Narrative Course 41-year-old female with right knee pain after fall 3 days ago. The extremity is neurovascularly intact. X-rays negative for fracture. Andrew wrap and crutches supplied. She is to follow-up with her primary doctor or orthopedist. Diagnosis Primary Impression: Contusion, knee Qualified Codes: S80.01XA - Contusion of right knee, initial encounter Referrals: Orthopedist Primary Care Physician Additional Instructions: Andrew wrap and crutches for weightbearing. Ice and elevate the extremity. Ibuprofen and [place] as needed for pain Follow-up with primary doctor or orthopedic doctor. Scripts Walker/Adult/Folding (Walker/Adult/Folding) 1 Mis Mis EA .XX DIRECTED, #1 0 Refills Prov: Winter Yang 07/08/17 Hydrocodone-Acetaminophen ([place]) 5 Mg-325 Mg Tab 1 TAB PO Q6H Y for PAIN, #12 TAB 0 Refills Prov: Winter Yang 07/08/17 Disposition: 01 DISCHARGE HOME Condition: Stable Winter Yang Jul 08, 2017 20:05
--- NOTE | 2017-07-08 20:21 | RADRPT ---
EXAM DATE/TIME: 07/08/2017 19:19 [facility] COMPARISON: No previous studies available for comparison. INDICATIONS : Right lateral knee pain post fall. MEDICAL HISTORY : None. SURGICAL HISTORY : Cholecystectomy. ENCOUNTER: Initial ACUITY: 3 days PAIN SCORE: 10/10 LOCATION: Right knee FINDINGS: Four view examination of the right knee demonstrates no evidence of fracture or dislocation. Bony mi neralization is normal. The articular surfaces are intact. The suprapatellar soft tissues have a no rmal configuration. Spurring is seen at the anterior superior aspect of the patella. CONCLUSION: No acute bony abnormality is seen. Saqib Gaitan MD on July 08, 2017 at 20:18 Board Certified Radiologist. This report was verified electronically.
[2017-07-08] MEDS ORDERED: NORC5TAB PO (20:27)
[2017-07-08] MEDS ORDERED: ACETAMINOPHEN/HYDROcodone 325 MG/5 MG TAB PO ONE (20:30)
[2017-07-08] MEDS ORDERED: WALKER/ADULT/FO1 MIS (21:03)
== END 2017-07-08 21:24 | disposition home or self-care (01) ==
LOC: PHEFT 18:35
DX: S80.01XA Contusion of right knee, initial encounter (principal); D64.9 Anemia, unspecified; F41.9 Anxiety disorder, unspecified; F32.9 Major depressive disorder, single episode, unspecified; W19.XXXA Unspecified fall, initial encounter
CPT/HCPCS: 73564; 99283; E0113